=== PATIENT | female | born 1980 | race Caucasian/White ===

== ENCOUNTER 2021-05-29 00:28 | Emergency (ER) | payer OTHER ==
[~2021-05-29] VITALS: Ht 180.3 cm; Wt 72.6 kg
[2021-05-29 00:45] VITALS: BP 124/74
--- NOTE | 2021-05-29 00:48 | NUR ---
BIBS C/O RIGHT SIDED JAW PAIN THIS MORNING AND THIS EVENING. PATIENT ALERT AND ORIENTED X3. AMBULATORY WITH NON LABORED BREATHING. PLACED IN BED 9 ON MONITOR AND GOWN.
== END 2021-05-29 01:07 | disposition home or self-care (01) ==
LOC: ER 00:39
DX: R68.84 Jaw pain (principal); Z71.1 Person with feared health complaint in whom no diagnosis is made; I48.92 Unspecified atrial flutter; Z60.2 Problems related to living alone